=== PATIENT | male | born 1950 | race Two or more races ===

== ENCOUNTER 2023-03-01 05:35 | Day surgery (SDC) | payer OTHER | END 2023-03-01 15:55 | disposition home or self-care (01) | LOC: AMB-ENDOS 05:35 | PROVIDERS: ATTEND Colon & Rectal Surgery | DX: D12.4 Benign neoplasm of descending colon (principal); K57.30 Diverticulosis of large intestine without perforation or abscess without bleeding; R10.84 Generalized abdominal pain; K58.9 Irritable bowel syndrome, unspecified; Z20.822 Contact with and (suspected) exposure to COVID-19 ==